=== PATIENT | female | born 1985 ===

== ENCOUNTER 2023-07-07 20:08 | Emergency (ER) | payer SELFPAY ==
[2023-07-07] MEDS ORDERED: Take Home: hydrOXYzine HCl 25 MG Tab, 4 Tab Pack PO ONE (22:16)
== END 2023-07-07 22:31 | disposition home or self-care (01) ==
LOC: DL.ED 20:08
DX: F41.9 Anxiety disorder, unspecified (principal)
CPT/HCPCS: 93005; 99284; A9270; 93010